=== PATIENT | female | born 1960 | race Caucasian/White ===

== ENCOUNTER 2024-06-04 13:15 | Emergency (ER) | payer OTHER ==
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
--- NOTE | 2024-06-04 13:54 | XRAY Report ---
PROCEDURE: Wrist 3+V RT INDICATIONS: pain TECHNIQUE: 4 views of the wrist were acquired. COMPARISON: None. FINDINGS: Bones: Mildly displaced mildly oblique distal shaft fracture of the ulna. No distal radial fracture identified. Soft tissues: No suspicious soft tissue calcifications or masses. IMPRESSION: Mildly displaced distal shaft fracture of the ulna. Comment: Consider elbow films to exclude proximal injury. Reviewed by: Timur Ahn MD on 06/04/2024 1:52 PM PDT Approved by: Timur Ahn MD on 06/04/2024 1:52 PM PDT Station ID: [id number]
[2024-06-04 14:20] LABS: BASOPHILS % (AUTO) 0.3 %; EOSINOPHILS # (AUTO) 0.1 10^3/uL (0.0-0.7); EOSINOPHILS % (AUTO) 2.2 %; HCT - HEMATOCRIT 36.1 % (37.0-47.0); HGB - HEMOGLOBIN 11.8 g/dL (12.0-16.0); LYMPHOCYTES # (AUTO) 1.5 10^3/uL (1.5-3.5); LYMPHOCYTES % (AUTO) 24.5 %; MEAN CORPUSCULAR HEMOGLOBIN 33.5 pg (27.0-31.0); MEAN CORPUSCULAR HGB CONC 32.7 g/dL (32.0-36.0); MEAN CORPUSCULAR VOLUME 102.6 fL (81.0-99.0); MEAN PLATELET VOLUME 9.6 fL (7.9-10.8); MONOCYTES # (AUTO) 0.7 10^3/uL (0.0-1.0); MONOCYTES % (AUTO) 12.3 %; NEUTROPHILS # (AUTO) 3.7 10^3/uL (1.5-6.6); NEUTROPHILS % (AUTO) 60.5 %; PLT - PLATELET COUNT 158 10^3/uL (130-450); RED BLOOD COUNT 3.52 10^6/uL (4.20-5.40); RED CELL DISTRIBUTION WIDTH 12.7 % (12.0-15.0)
[2024-06-04 14:40] LABS: ALBUMIN 3.9 g/dL (3.2-5.5); ALBUMIN/GLOBULIN RATIO 1.4 (1.0-2.2); BILIRUBIN,TOTAL 0.8 mg/dL (0.2-1.0); MAGNESIUM 1.7 mg/dL (1.7-2.3); POTASSIUM 3.4 mmol/L (3.5-4.5); TOTAL PROTEIN 6.6 g/dL (6.4-8.9)
[2024-06-04 14:41] LABS: TROPONIN I HIGH SENSITIVITY 4.3 ng/L (2.3-14.8)
--- NOTE | 2024-06-04 15:04 | CT Report ---
PROCEDURE: Cervical Spine WO INDICATIONS: neck pain TECHNIQUE: Noncontrast 3 mm thick sections acquired from the skull base to the T4 level. Sagittal and coronal r eformats were then constructed. For radiation dose reduction, the following was used: automated exp osure control, adjustment of mA and/or kV according to patient size. COMPARISON: None. FINDINGS: Image quality: Excellent. Bones: No fractures or dislocations. Visualized superior ribs are intact. Soft tissues: Prevertebral soft tissues are normal in thickness. No paravertebral hematomas. No ap ical pneumothoraces. IMPRESSION: No acute, displaced fracture or traumatic subluxation. Reviewed by: Duy Swanson MD on 06/04/2024 3:03 PM PDT Approved by: Duy Swanson MD on 06/04/2024 3:03 PM PDT Station ID: [id number]
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
--- NOTE | 2024-06-04 15:07 | XRAY Report ---
PROCEDURE: Elbow 3+V RT INDICATIONS: concern for fracture as ulnar fracture noted TECHNIQUE: 3 views of the elbow were acquired. COMPARISON: None. FINDINGS: Bones: No fractures or dislocations. No suspicious bony lesions. Soft tissues: No effusion. No suspicious soft tissue calcifications or masses. IMPRESSION: No acute bony abnormality or significant joint effusion. Reviewed by: Duy Swanson MD on 06/04/2024 3:06 PM PDT Approved by: Duy Swanson MD on 06/04/2024 3:06 PM PDT Station ID: [id number]
--- NOTE | 2024-06-04 15:07 | CT Report ---
PROCEDURE: Chest WO INDICATIONS: chest pain TECHNIQUE: A CT scan of the chest was performed. Intravenous contrast media was not administered. Images were re corded and evaluated at appropriate window settings. Reformats: axial MIP of the chest, coronal and s agittal. For radiation dose reduction, the following was used: automated exposure control, adjustment of mA and/or kV according to patient size. COMPARISON: None. FINDINGS: Image quality: Diagnostic. Chest wall and lower neck: No thyroid nodule which requires sonographic follow up. No axillary or sup raclavicular adenopathy by size. Lungs and pleura: No consolidation. No pleural effusions. No pneumothorax. No suspicious pulmonary n odules which require follow up. Juxtapleural nodules with smooth margins, favoring benign intrapulmo nary lymph nodes. Mediastinum: Heart size is enlarged. 2 vessel coronary artery calcifications, advanced for age. No pe ricardial effusion. No large vessel abnormality. No mediastinal adenopathy by size criteria. Bones: No aggressive osseous abnormality. Chronic anterior wedging of the T12 vertebral body. Upper Abdomen: Subcentimeter hypoattenuating liver lesions, too small to characterize by CT but likel y small cysts. IMPRESSION: No evidence of traumatic injury to the chest. No pneumothorax or contusions. Marked coronary artery calcifications for age. Correlate with risk factors and advise counseling. Reviewed by: Duy Swanson MD on 06/04/2024 3:06 PM PDT Approved by: Duy Swanson MD on 06/04/2024 3:06 PM PDT Station ID: [id number]
--- NOTE | 2024-06-04 15:13 | XRAY Report ---
PROCEDURE: Shoulder 2+V RT INDICATIONS: right shoulder pain TECHNIQUE: 3 views of the shoulder were acquired. COMPARISON: None. FINDINGS: Bones: No fractures or dislocations. No suspicious bony lesions. Visualized ribs appear intact. Soft tissues: No suspicious soft tissue calcifications. The visualized lungs are within normal limi ts. IMPRESSION: No acute bony abnormality. Reviewed by: Timur Ahn MD on 06/04/2024 3:12 PM PDT Approved by: Timur Ahn MD on 06/04/2024 3:12 PM PDT Station ID: [id number]
--- NOTE | 2024-06-04 15:14 | XRAY Report ---
PROCEDURE: Knee 4+V RT INDICATIONS: knee pain and swelling TECHNIQUE: 4 views of the knee(s) were acquired. COMPARISON: None. FINDINGS: Bones: No fractures or dislocations. No suspicious bony lesions. Soft tissues: No knee joint effusion. No suspicious soft tissue calcifications or masses. IMPRESSION: No acute bony abnormality. Reviewed by: Timur Ahn MD on 06/04/2024 3:12 PM PDT Approved by: Timur Ahn MD on 06/04/2024 3:12 PM PDT Station ID: [id number]
[2024-06-04] MEDS: CYCLOBENZAPRINE 10 MG TABLET PO STA (15:48)
--- NOTE | 2024-06-04 16:02 | XRAY Report ---
PROCEDURE: Hip w/Pelvis 2-3V RT INDICATIONS: right hip injury after fall TECHNIQUE: 2 views of the hip were acquired. COMPARISON: None. FINDINGS: Bones: No fractures or dislocations. No suspicious bony lesions. Soft tissues: No suspicious soft tissue calcifications or masses. IMPRESSION: No acute bony abnormality. If there remains a high clinical concern for fracture, including inability to bear weight, consider cross-sectional imaging to exclude an occult fracture. Reviewed by: uDy Swanson MD on 06/04/2024 4:01 PM PDT Approved by: Duy Swanson MD on 06/04/2024 4:01 PM PDT Station ID: [id number]
[2024-06-04] MEDS: POTASSIUM CHLORIDE 20 MEQ TABLET PO STA (16:18)
[2024-06-04 16:30] VITALS: O2SAT 100
[2024-06-04 17:20] VITALS: BP 120/73
== END 2024-06-04 17:20 | disposition home or self-care (01) ==
LOC: ED 13:15
DX: S52.291A Other fracture of shaft of right ulna, initial encounter for closed fracture (principal); M54.2 Cervicalgia; M25.511 Pain in right shoulder; R07.9 Chest pain, unspecified; M25.551 Pain in right hip; I25.10 Atherosclerotic heart disease of native coronary artery without angina pectoris; M25.561 Pain in right knee; E87.6 Hypokalemia; V43.52XA Car driver injured in collision with other type car in traffic accident, initial encounter
CPT/HCPCS: 36415; 70450; 71250; 72125; 73030; 73080; 73110; 73502; 73564; 80053; 83735; 84484; 85025; 93005; 99284; A9270

== ENCOUNTER 2024-06-11 08:00 | Outpatient (CLI) | payer OTHER, MEDICARE ==
--- NOTE | 2024-06-12 11:31 | XRAY Report ---
Forearm RT HISTORY: 64 years of age, PAIN IN RIGHT WRIST TECHNIQUE: Forearm RT COMPARISON: 06/04/2024. FINDINGS/IMPRESSION: Patient is imaged in a cast, limiting evaluation. Oblique, minimally displaced fracture of the distal ulna diaphysis, in slightly improved alignment in comparison to prior exam. No interval healing. Reviewed by: Carmenza Ojeda MD on 06/12/2024 11:29 AM PDT Approved by: Carmenza Ojeda MD on 06/12/2024 11:29 AM PDT Station ID: [id number]
== END 2024-06-11 23:59 | disposition home or self-care (01) ==
LOC: DI.WOS 08:00
PROVIDERS: ATTEND Orthopaedic Surgery
DX: S52.691A Other fracture of lower end of right ulna, initial encounter for closed fracture (principal)

== ENCOUNTER 2024-06-12 09:16 | Day surgery (SDC) | payer OTHER, MEDICARE ==
[2024-06-12] MEDS: LACTATED RINGERS 1,000 ML IV ONE (09:56)
[2024-06-12] MEDS ORDERED: BUPIVACAINE 0.25% PF 30 ML VIAL ONE (11:31)
--- NOTE | 2024-06-12 11:54 | ANESTHESIA ---
Pre-Anesthesia VS, & Labs - Diagnosis Displaced right ulnar shaft fracture - Procedure ORIF right ulnar shaft Height: 5 ft 7 in Weight (kg): 65.7 kg Body Mass Index: 22.6 BMI Classification: Normal - NPO >8 hours - Is Patient ?: No Home Medications and Allergies EPINEPHrine [Epinephrine] 0.3 mg IJ UD PRN 06/04/24 Methadone HCl 10 mg PO Q3HR PRN 06/04/24 Methylphenidate [Ritalin] 10 mg PO TID 06/04/24 Pantoprazole Sodium [Protonix] 20 mg PO DAILY 06/04/24 Sumatriptan Succinate [Imitrex] 100 mg PO UD PRN 06/04/24 Terbinafine [LamISIL] 250 mg PO DAILY 06/04/24 Topiramate 50 mg PO BID 06/04/24 Zaleplon 5 mg PO DAILY PRN 06/04/24 buPROPion HCL [Bupropion HCl] 150 mg PO HS 06/04/24 Allergies/Adverse Reactions: Allergies Allergy/AdvReac Type Severity Reaction Status Date / Time No Known Drug Allergies Allergy Verified 06/04/24 13:22 Anes History & Medical History - Anesthetic History Anesthesia Complications: reports: No previous complications - Medical History Cardiovascular: reports: Hypertension, Coronary artery disease (Diagnosed on CT scan. Waiting on follow-up with) Gastrointestinal: reports: GERD Urinary: reports: None Neuro: reports: None Musculoskeletal: reports: Chronic back pain Endocrine/Autoimmune: reports: None Blood Disorders: reports: None Skin: reports: None Smoking Status: Never smoker Psychosocial: reports: Methadone History of Cancer?: No - Surgical History Gynecologic: reports: Hysterectomy Orthopedic: reports: Spine surgery Exam General: Alert, Oriented x3, Cooperative, No acute distress Dental: WNL Mouth Openin Fingerbreadth Neck Mobility: Normal Mallampati classification: II Thyromental Distance: 4-6 cm Mental/Cognitive Status: Alert/Oriented X3, Normal for patient Plan Anesthesia Type: General Consent for Procedure(s) Verified and Reviewed: Yes Code Status: Attempt Resuscitation ASA classification: 3-Severe systemic disease Is this case an emergency?: No
[2024-06-12] MEDS ORDERED: MORPHINE 2 MG/ML CARPUJECT IVP PRN (12:02)
[2024-06-12] MEDS ORDERED: ATROPINE ABBOJECT 1 MG/10 ML SYRINGE IVP PRN (12:02)
[2024-06-12] MEDS ORDERED: fentaNYL 100 MCG/2 ML VIAL IVP PRN (12:02)
[2024-06-12] MEDS ORDERED: ONDANSETRON 4 MG/2 ML VIAL IVP PRN (12:02)
[2024-06-12] MEDS ORDERED: NALOXONE 0.4 MG/ML VIAL IVP PRN (12:02)
[2024-06-12] MEDS ORDERED: HYDROmorphone 0.5 MG/0.5 ML SYRINGE IVP PRN (12:02)
[2024-06-12] MEDS ORDERED: SODIUM CHLORIDE 0.9% 10 ML VIAL IVP ONE (12:19)
[2024-06-12] MEDS ORDERED: HYDROmorphone 0.5 MG/0.5 ML SYRINGE ONE (12:19)
[2024-06-12] MEDS ORDERED: DEXAMETHASONE 4 MG/ML VIAL ONE (12:19)
[2024-06-12] MEDS ORDERED: ROPIVACAINE 0.5% PF 20 ML VIAL ONE (12:19)
[2024-06-12] MEDS: HYDROmorphone 0.5 MG/0.5 ML SYRINGE IVP PRN (12:20)
[2024-06-12] MEDS ORDERED: fentaNYL 100 MCG/2 ML VIAL ONE (12:20)
[2024-06-12] MEDS ORDERED: MIDAZOLAM 2 MG/2 ML VIAL ONE (12:20)
[2024-06-12] MEDS ORDERED: PROPOFOL 200 MG/20 ML VIAL IVP ONE (12:21)
[2024-06-12] MEDS ORDERED: LACTATED RINGERS 1,000 ML IV SCH (13:00)
[2024-06-12] MEDS: LACTATED RINGERS 200 ML IV ONE (15:18)
[2024-06-12] MEDS ORDERED: oxyCODONE 5 MG TABLET PO PRN (15:25)
[2024-06-12] MEDS ORDERED: ACETAMINOPHEN 500 MG TABLET PO PRN (15:25)
[2024-06-12] MEDS ORDERED: ONDANSETRON ODT 4 MG TABLET TL PRN (15:25)
--- NOTE | 2024-06-12 15:46 | ANESTHESIA POST OP EVALUATION ---
Anesthesia Post Eval - Post Anesthesia Eval CV Function Including HR & BP: Stable Pain Control: Satisfactory Nausea & Vomiting: Negative Mental Status: Baseline Respiratory Status: Airway Patent Hydration Status: Satisfactory Anesthesia Complications: None
--- NOTE | 2024-06-12 15:46 | OPERATIVE REPORT ---
Operative Report - General Procedure Date: 06/12/24 Planned Procedure: ORIF of the RIGHT Ulna Pre-Op Diagnosis: RIGHT Ulna Fracture Procedure Performed: ORIF of the RIGHT ulna fracture Post Op Diagnosis: GERSON - Procedure Note Primary Surgeon: roni Secondary Surgeon: Holly - Other Other Information/Narrative: Surgeon: Josef Garcia MD Co-Surgeon: NICHOLAS Luevano Anesthesia Type: General EBL: 10cc Specimens Removed: None Complications: None Implants/Grafts: 3.5mm 7 hole plate, with 3 cortical screws and 2 locking screws. DBX bone puddy Drains: No lines, drains, or airways are recorded for this episode. Findings: Displaced ulnar shaft fracture, highly comminuted Narrative: The patient was met in the pre-operative hold area. Consent was verified. Operative extremity was signed. All questions were answered. They were brought to the operating room and surrendered to anesthesia. Once general anesthesia was obtained they were prepped and draped. A time out was performed. An esmarch was used to exsanguinate the limb and the tourniquet was elevated. Direct ulnar approach was taken. We centered the incision site over the fracture site. Came through skin and easily dissected down to bone. The periosteum was elevated about the fracture site. There was high comminution abo ut the fracture site with multiple interfragmentary fragments. Utilizing crab claws we are able to get a good reduction out to length. initially we attempted to place the plate on the volar aspect however this continued to lose reduction. We were able to then place the plate more ulnarly. Initially we placed a cortical screw proximally. Then turned our attention distally where we were able to place a locking screw. After these 2 were in position we reviewed the imaging in AP and lateral views to ensure that we had an adequate reduction and the hardware is in place. Happy with this we placed 1 more cortical screw proximally and the remaining screws were all locking screws. Because of the comminution there was bony loss that needed to be filled. This was filled with DBX putty and we are able to talbot in the cortical fragments. This was held in place with 2-0 FiberWire. Final films were obtained in both the AP and lateral. The wound was irrigated copiously. The fascia was closed with 2-0 vicryl and the skin with 3-0 nylon. No local anesthetic was used given the efficiency of the block.. A sterile dressing and splint was applied. Postoperative Plan: Sugar Tong resting splint until 2 weeks. Xrays. Sutures out Short Arm Cast weeks 2-4, xrays Removable brace & ROM weeks 4-8, xrays Advance weight bearing at 8 weeks if things are going well. Foot on the ground activities from 8-12 weeks. Josef Garcia MD
--- NOTE | 2024-06-13 11:12 | XRAY Report ---
PROCEDURE: OR C-Arm Procedure INDICATIONS: ORIF RIGHT ULNAR SHAFT FLUORO TIME: 0.2 MIN TECHNIQUE: Intraoperative fluoroscopy for ORIF right distal ulna. Total fluoroscopy time 0.2 minutes. Cumulative dose 0.30 mGy COMPARISON: None. FINDINGS: 2 intraoperative fluoroscopic spot images demonstrate a compression plate and several screws fixing a distal ulnar fracture. Osseous alignment is near-anatomic. Hardware is intact. IMPRESSION: Intraoperative fluoroscopy for right distal ulna ORIF. Reviewed by: Delmy Mon MD on 06/13/2024 11:11 AM PDT Approved by: Delmy Mon MD on 06/13/2024 11:11 AM PDT Station ID: [id number]
== END 2024-06-12 09:17 | disposition home or self-care (01) ==
LOC: SDS 09:16
PROVIDERS: ATTEND Orthopaedic Surgery
DX: S52.251A Displaced comminuted fracture of shaft of ulna, right arm, initial encounter for closed fracture (principal); I25.10 Atherosclerotic heart disease of native coronary artery without angina pectoris; I10 Essential (primary) hypertension
CPT/HCPCS: 25545; J1170; J2795; J7120

== ENCOUNTER 2024-06-12 09:39 | Outpatient (CLI) | payer OTHER, MEDICARE ==
--- NOTE | 2024-06-12 15:00 | XRAY Report ---
PROCEDURE: Ribs 2V LT INDICATIONS: LEFT FLANK PAIN TECHNIQUE: 2 views of the ribs were acquired. COMPARISON: None. FINDINGS: Bones and chest wall: No fractures or dislocations. No suspicious bony lesions. Overlying soft tis sues appear unremarkable. No radiographic abnormality underlying in BB marker within the left lower chest corresponding to the area of clinical concern. Lungs and pleura: The visualized lung appears clear. No pleural effusions or pneumothorax are visib le. IMPRESSION: No acute abnormality involving the left ribs. Reviewed by: Nabil Woods MD on 06/12/2024 2:59 PM PDT Approved by: Nabil Woods MD on 06/12/2024 2:59 PM PDT Station ID: [id number]
== END 2024-06-12 09:40 | disposition home or self-care (01) ==
LOC: DI 09:39
PROVIDERS: ATTEND Orthopaedic Surgery
DX: R10.9 Unspecified abdominal pain (principal)